=== PATIENT | male | born 1970 | race Caucasian/White ===

== ENCOUNTER 2020-04-11 07:08 | Emergency (ER) | payer MEDICAID ==
[~2020-04-11] VITALS: Ht 177.8 cm; Wt 73.5 kg
[~2020-04-11 07:08] MED LIST: CLIN-97 PO; NEOM28OI31 TOP
[2020-04-11 07:17] VITALS: BP 156/98
== END 2020-04-11 08:03 | disposition home or self-care (01) ==
LOC: ER 07:09
DX: S90.424A Blister (nonthermal), right lesser toe(s), initial encounter (principal); L97.519 Non-pressure chronic ulcer of other part of right foot with unspecified severity; I10 Essential (primary) hypertension; F15.90 Other stimulant use, unspecified, uncomplicated; Z86.14 Personal history of Methicillin resistant Staphylococcus aureus infection; Z72.89 Other problems related to lifestyle; Z88.0 Allergy status to penicillin; Z79.899 Other long term (current) drug therapy; X58.XXXA Exposure to other specified factors, initial encounter; Y93.89 Activity, other specified; Y92.89 Other specified places as the place of occurrence of the external cause; Y99.8 Other external cause status
CPT/HCPCS: 99281

== ENCOUNTER 2020-06-11 06:38 | Emergency (ER) | payer MEDICAID ==
[~2020-06-11] VITALS: Ht 180.3 cm; Wt 89.5 kg
[2020-06-11] MEDS ORDERED: morphine 4 MG/ML inj SYRINge IV PRN (06:55)
[2020-06-11] MEDS ORDERED: ondansetron/PF 4mg/2ml inj IV ONE (06:55)
[2020-06-11] MEDS ORDERED: normal saline 1000ML IV soln IVB ONE ×2 (06:55→08:25)
[2020-06-11] MEDS ORDERED: LORazepam 2 mg/ml vial IV ONE (07:05)
[2020-06-11] MEDS ORDERED: morphine 4 MG/ML inj SYRINge IV ONE ×2 (07:25→11:50)
--- NOTE | 2020-06-11 07:25 | NUR ---
Pt writing in bed, yelling, still very painful. MD at bedside. Will give another dose of Morphine per order.
[2020-06-11 07:35] LABS: BASOPHILS # (AUTO) 0.1 X10'3 (0-0.2); EOSINOPHILS # (AUTO) 0.2 X10'3 (0-0.9); EOSINOPHILS % (AUTO) 3.2 % (0-6); HEMOGLOBIN 15.3 g/dl (14.0-17.9); LYMPHOCYTES # (AUTO) 2.1 X10'3 (1.1-4.8); LYMPHOCYTES % (AUTO) 27.5 % (21-51); MEAN CORPUSCULAR HGB CONC 34.8 g/dL (33.0-36.5); MEAN CORPUSCULAR VOLUME 86.1 FL (78-98); MEAN PLATELET VOLUME 6.8 FL (7.4-10.4); MONOCYTES # (AUTO) 0.5 X10'3 (0-0.9); MONOCYTES % (AUTO) 6.9 % (2-12); NEUTROPHILS # (AUTO) 4.7 X10'3 (1.8-7.7); NEUTROPHILS % (AUTO) 61.4 % (42-75); PLATELET COUNT 383 X10'3 (140-440); RED BLOOD COUNT 5.11 X10'6 (4.70-6.10); RED CELL DISTRIBUTION WIDTH 12.8 % (11.5-14.5); WHITE BLOOD COUNT 7.7 X10'3 (4.5-11.0)
[2020-06-11] MEDS ORDERED: HYDROmorphone 1 mg/ml syringe IV ONE (07:40)
--- NOTE | 2020-06-11 07:41 | NUR ---
To CT with tech, still writhing in pain, yelling.
[2020-06-11 07:46] LABS: ALANINE AMINOTRANSFERASE 49 U/L (12-78); ALBUMIN 3.9 G/DL (3.4-5.0); ALKALINE PHOSPHATASE 84 IU/L (46-116); ANION GAP 10 (8-16); ASPARTATE AMINO TRANSFERASE 40 U/L (10-37); BLOOD UREA NITROGEN 23 MG/DL (7-18); BUN/CREATININE RATIO 20.2 (5.4-32.0); CALCIUM 9.6 MG/DL (8.5-10.1); CHLORIDE 105 MMOL/L (99-107); CREATININE 1.14 MG/DL (0.60-1.10); GLUCOSE 131 MG/DL (70-104); SODIUM 141 MMOL/L (135-145); TOTAL PROTEIN 7.7 G/DL (6.4-8.2); eGFR 68 ML/MIN
--- NOTE | 2020-06-11 08:00 | NUR ---
Pt back from CT, still very painful. No swelling or other abnormalities to R testicle.
--- NOTE | 2020-06-11 08:56 | NUR ---
Dr Farrell aware patient placed on O2 2L via NC for lowering SPO2, aware patient unable to urinate, 2nd Liter NS infusing per order (see EMAR), patient states he is still in pain. Per MD will attempt straight catheterization to obtain UA if patient unable to void s/p 2nd liter NS.
[2020-06-11 10:25] LABS: CLARITY,URINE SLIGHTLY CLOUDY (Clear); COLOR,URINE YELLOW (Yellow); GLUCOSE, URINE NEGATIVE (Neg); KETONES,URINE 15 mg/dl (Neg); LEUKOCYTE ESTERASE ,URINE NEGATIVE (Neg); NITRITES, URINE NEGATIVE (Neg); OCCULT BLOOD,URINE TRACE-INTACT (Neg); PROTEIN,URINE NEGATIVE (Neg); UROBILINOGEN,URINE 0.2 E.U/dL (0.2-1.0)
[2020-06-11 10:29] LABS: UA COLLECTION TYPE STRAIGHT CATH
[2020-06-11 10:33] LABS: SQUAMOUS EPITHELIAL CELL,UR FEW /LPF (FEW)
[2020-06-11 10:34] LABS: BACTERIA,URINE FEW /HPF (Neg); RBC,URINE 0-2 /HPF (0-2); WBC,URINE 0-4 /HPF (0-4)
[2020-06-11 10:41] LABS: URINE AMPHETAMINE SCREEN POSITIVE (Neg); URINE BARBITUATE SCREEN NEGATIVE (Neg); URINE BENZODIAZEPINES SCREEN NEGATIVE (Neg); URINE CANNABINOID SCREEN POSITIVE (Neg); URINE COCAINE SCREEN NEGATIVE (Neg); URINE METHADONE SCREEN NEGATIVE (Neg); URINE OPIATE SCREEN POSITIVE (Neg); URINE PHENCYCLIDINE SCREEN NEGATIVE (Neg)
[2020-06-11] MEDS ORDERED: IBUP-1984 PO (11:43)
[2020-06-11] MEDS ORDERED: FLO0.4C PO (11:43)
[2020-06-11] MEDS ORDERED: HYDR-4353 PO (11:43)
--- NOTE | 2020-06-11 12:18 | NUR ---
Pt feeling much better, voided w/out difficulty, tolerating PO
[2020-06-11 12:54] VITALS: BP 182/102
== END 2020-06-11 13:33 | disposition home or self-care (01) ==
LOC: ER 06:39
DX: N20.0 Calculus of kidney (principal); I10 Essential (primary) hypertension; F17.200 Nicotine dependence, unspecified, uncomplicated; F15.10 Other stimulant abuse, uncomplicated; Z88.0 Allergy status to penicillin; Z79.899 Other long term (current) drug therapy
CPT/HCPCS: 36415; 74176; 76870; 80053; 80305; 81001; 85025; 93976; 96361; 96374; 96375; 96376; 99285; J1170; J2060; J2270; J2405; J7030

== ENCOUNTER 2021-05-01 19:28 | Emergency (ER) | payer MEDICAID | END 2021-05-01 22:47 | disposition left against medical advice (07) | LOC: ER 19:28 | DX: R10.9 Unspecified abdominal pain (principal); Z53.21 Procedure and treatment not carried out due to patient leaving prior to being seen by health care provider ==

== ENCOUNTER 2021-05-02 08:30 | Emergency (ER) | payer MEDICAID ==
[~2021-05-02] VITALS: Ht 180.3 cm; Wt 85.9 kg
[2021-05-02 08:50] VITALS: BP 154/104
== END 2021-05-02 10:26 | disposition home or self-care (01) ==
LOC: ER 08:30
DX: R05.9 Cough, unspecified (principal); Z20.822 Contact with and (suspected) exposure to COVID-19; K40.20 Bilateral inguinal hernia, without obstruction or gangrene, not specified as recurrent; I10 Essential (primary) hypertension; F15.90 Other stimulant use, unspecified, uncomplicated; Z86.14 Personal history of Methicillin resistant Staphylococcus aureus infection; Z72.89 Other problems related to lifestyle; Z88.0 Allergy status to penicillin; Z79.2 Long term (current) use of antibiotics
CPT/HCPCS: 99281

== ENCOUNTER 2022-07-21 18:05 | Emergency (ER) | payer MEDICAID ==
[~2022-07-21] VITALS: Ht 177.8 cm; Wt 105.0 kg
[2022-07-21 18:09] VITALS: BP 151/93
[2022-07-21 20:01] LABS: BASOPHILS # (AUTO) 0.1 X10'3 (0-0.2); BASOPHILS % (AUTO) 0.8 % (0-1); EOSINOPHILS # (AUTO) 0.4 X10'3 (0-0.9); EOSINOPHILS % (AUTO) 4.9 % (0-6); HEMATOCRIT 40.2 % (42.0-52.0); LYMPHOCYTES # (AUTO) 2.6 X10'3 (1.1-4.8); LYMPHOCYTES % (AUTO) 32.7 % (21-51); MEAN CORPUSCULAR HEMOGLOBIN 29.1 PG (27.0-31.0); MEAN CORPUSCULAR HGB CONC 34.7 g/dL (33.0-36.5); MEAN CORPUSCULAR VOLUME 83.9 FL (78-98); MEAN PLATELET VOLUME 6.8 FL (7.4-10.4); MONOCYTES # (AUTO) 0.6 X10'3 (0-0.9); MONOCYTES % (AUTO) 7.1 % (2-12); NEUTROPHILS # (AUTO) 4.3 X10'3 (1.8-7.7); NEUTROPHILS % (AUTO) 54.5 % (42-75); PLATELET COUNT 339 X10'3 (140-440); RED CELL DISTRIBUTION WIDTH 12.7 % (11.5-14.5); WHITE BLOOD COUNT 7.9 X10'3 (4.5-11.0)
[2022-07-21 20:17] LABS: ALANINE AMINOTRANSFERASE 38 U/L (12-78); ALBUMIN 3.6 G/DL (3.4-5.0); ALKALINE PHOSPHATASE 75 IU/L (46-116); ANION GAP 9 (8-16); ASPARTATE AMINO TRANSFERASE 15 U/L (10-37); BILIRUBIN,TOTAL 0.2 MG/DL (0.1-1.0); BLOOD UREA NITROGEN 25 MG/DL (7-18); BUN/CREATININE RATIO 22.7 (5.4-32.0); CALCIUM 9.3 MG/DL (8.5-10.1); CHLORIDE 104 MMOL/L (99-107); GLUCOSE 121 MG/DL (70-104); POTASSIUM 3.6 MMOL/L (3.5-5.1); SODIUM 140 MMOL/L (135-145); TOTAL CARBON DIOXIDE 26.9 MMOL/L (24-32); TOTAL PROTEIN 7.2 G/DL (6.4-8.2); eGFR 70 ML/MIN
== END 2022-07-21 20:29 | disposition home or self-care (01) ==
LOC: ER 18:06
DX: M70.22 Olecranon bursitis, left elbow (principal); I10 Essential (primary) hypertension; F15.20 Other stimulant dependence, uncomplicated; Z88.0 Allergy status to penicillin; Y93.89 Activity, other specified
CPT/HCPCS: 36415; 74176; 80053; 85025; 99284